=== PATIENT | female | born 1960 | race Caucasian/White ===

== ENCOUNTER 2017-03-04 15:22 | Emergency (ER) | payer OTHER ==
[2017-03-04 18:37] LABS: ADD UMIC YES; UR ASCORBIC ACID NEGATIVE (NEGATIVE); UR BACTERIA FEW /HPF (NONE SEEN); UR BILIRUBIN (Dip) NEGATIVE (NEGATIVE); UR BLOOD (Dip) 2+ mg/dL (NEGATIVE); UR CLARITY TURBID (CLEAR); UR COLOR AMBER (YELLOW); UR GLUCOSE (Dip) 1+ mg/dL (NEGATIVE); UR HYALINE CAST FEW /HPF (NONE SEEN); UR KETONES (Dip) NEGATIVE (NEGATIVE); UR LEUKOCYTE ESTERASE (Dip) NEGATIVE Leu/ul (NEGATIVE); UR MUCUS MODERATE /HPF (NONE SEEN); UR NITRITE (Dip) POSITIVE (NEGATIVE); UR RBC > 182 /HPF (0-5); UR SPECIFIC GRAVITY (Dip) 1.035 (1.003-1.030); UR SQUAMOUS EPITHELIAL CELL FEW /HPF (FEW); UR TOTAL PROTEIN (Dip) 2+ mg/dl (NEGATIVE); UR UROBILINOGEN (Dip) 2+ mg/dL (NEGATIVE); UR WBC 55 /HPF (0-5)
== END 2017-03-04 18:46 | disposition home or self-care (01) ==
LOC: FTE 15:22
DX: N39.0 Urinary tract infection, site not specified (principal); I10 Essential (primary) hypertension
CPT/HCPCS: 81001; 99283

== ENCOUNTER 2018-04-04 21:45 | Emergency (ER) | payer OTHER ==
[2018-04-04 23:13] LABS: URINE BLOOD (Dip) POC Negative (NEGATIVE); URINE GLUCOSE (Dip) POC Negative (NEGATIVE); URINE KETONES (Dip) POC Negative (NEGATIVE); URINE LEUKOCYTE EST (Dip) POC Negative (NEGATIVE); URINE NITRITE (Dip) POC Negative (NEGATIVE); URINE TOTAL PROTEIN POC Negative (NEGATIVE)
== END 2018-04-04 23:50 | disposition home or self-care (01) ==
LOC: FTE 21:45
DX: R30.0 Dysuria (principal); I10 Essential (primary) hypertension
CPT/HCPCS: 81003; 87086; 99283

== ENCOUNTER 2018-04-14 17:43 | Emergency (ER) | payer OTHER ==
[2018-04-14 19:40] LABS: ADD UMIC YES; UR ASCORBIC ACID NEGATIVE (NEGATIVE); UR BACTERIA FEW /HPF (NONE SEEN); UR BILIRUBIN (Dip) NEGATIVE (NEGATIVE); UR BLOOD (Dip) NEGATIVE (NEGATIVE); UR CLARITY TURBID (CLEAR); UR COLOR AMBER (YELLOW); UR GLUCOSE (Dip) NEGATIVE (NEGATIVE); UR KETONES (Dip) NEGATIVE (NEGATIVE); UR LEUKOCYTE ESTERASE (Dip) NEGATIVE Leu/ul (NEGATIVE); UR NITRITE (Dip) POSITIVE (NEGATIVE); UR RBC 5 /HPF (0-5); UR SPECIFIC GRAVITY (Dip) 1.028 (1.003-1.030); UR SQUAMOUS EPITHELIAL CELL MODERATE /HPF (FEW); UR TOTAL PROTEIN (Dip) NEGATIVE (NEGATIVE); UR UROBILINOGEN (Dip) 2+ mg/dL (NEGATIVE); UR WBC 4 /HPF (0-5)
== END 2018-04-14 19:52 | disposition home or self-care (01) ==
LOC: E/R 17:43
DX: N30.10 Interstitial cystitis (chronic) without hematuria (principal); I10 Essential (primary) hypertension
CPT/HCPCS: 81001; 87086; 99283

== ENCOUNTER 2018-04-28 18:30 | Emergency (ER) | payer OTHER ==
[2018-04-28 23:33] LABS: ADD MAN DIFF? NO
[2018-04-28 23:35] LABS: BASOPHIL # 0.1 10^3/ul (0.0-0.1); BASOPHILS % 0.9 % (0.0-2.0); EOSINOPHILS # 0.3 10^3/ul (0.0-0.5); EOSINOPHILS % 2.4 % (0.0-7.0); HEMATOCRIT 36.2 % (37.0-47.0); HEMOGLOBIN 11.7 g/dl (12.0-16.0); LYMPHOCYTES # 3.2 10^3/ul (0.8-2.9); LYMPHOCYTES % 26.2 % (15.0-51.0); MEAN CORPUSCULAR HEMOGLOBIN 34.1 pg (29.0-33.0); MEAN CORPUSCULAR HGB CONC 32.3 g/dl (32.0-37.0); MEAN CORPUSCULAR VOLUME 105.5 fl (82.0-101.0); MEAN PLATELET VOLUME 8.8 fl (7.4-10.4); MONOCYTES % 7.9 % (0.0-11.0); NEUTROPHIL # 7.5 10^3/ul (1.6-7.5); NEUTROPHILS % 61.3 % (39.0-77.0); PLATELET COUNT 344 10^3/UL (140-415); RED BLOOD COUNT 3.43 10^6/ul (4.20-5.40); RED CELL DISTRIBUTION WIDTH 14.2 % (11.5-14.5)
[2018-04-28 23:35] LABS: WHITE BLOOD COUNT 12.3 10^3/ul (4.8-10.8)
[2018-04-28] MEDS: morphine 2 MG INJ IV (23:36)
[2018-04-28] MEDS: CEFTRIAXONE 1 GM/50 ML (PMX) 50 ML IVPB (23:36)
[2018-04-28] MEDS: PHENAZOPYRIDINE 100 MG TAB PO (23:36)
[2018-04-28] MEDS: SOD CHLORIDE 0.9% 1,000 ML IV (23:37)
[2018-04-28 23:46] LABS: ADD UMIC YES; UR ASCORBIC ACID NEGATIVE (NEGATIVE); UR BACTERIA FEW /HPF (NONE SEEN); UR BILIRUBIN (Dip) NEGATIVE (NEGATIVE); UR BLOOD (Dip) 3+ mg/dL (NEGATIVE); UR CLARITY CLOUDY (CLEAR); UR COLOR RED (YELLOW); UR GLUCOSE (Dip) NEGATIVE (NEGATIVE); UR KETONES (Dip) NEGATIVE (NEGATIVE); UR LEUKOCYTE ESTERASE (Dip) TRACE Leu/ul (NEGATIVE); UR NITRITE (Dip) NEGATIVE (NEGATIVE); UR RBC > 182 /HPF (0-5); UR SPECIFIC GRAVITY (Dip) 1.025 (1.003-1.030); UR SQUAMOUS EPITHELIAL CELL FEW /HPF (FEW); UR TOTAL PROTEIN (Dip) 2+ mg/dl (NEGATIVE); UR UROBILINOGEN (Dip) NEGATIVE (NEGATIVE); UR WBC 27 /HPF (0-5)
[2018-04-28 23:54] LABS: ANION GAP 12 (5-13); BLOOD UREA NITROGEN 20 mg/dl (7-20); CALCIUM 9.1 mg/dl (8.4-10.2); CARBON DIOXIDE 17 mmol/L (21-31); CHLORIDE 113 mmol/L (97-110); CREATININE 0.63 mg/dl (0.44-1.00); Estimated GFR > 60 mL/min (>60); GLUCOSE 97 mg/dl (70-220); POTASSIUM 3.5 mmol/L (3.5-5.1); SODIUM 142 mmol/L (135-144)
[2018-04-29] MEDS: IOHEXOL 300MG/ML 150 ML BTL (01:06)
[2018-04-29] MEDS: SOD CHLORIDE 0.9% 100 ML (01:06)
== END 2018-04-29 02:14 | disposition home or self-care (01) ==
LOC: FTE 04-29 02:14
DX: N39.0 Urinary tract infection, site not specified (principal); I10 Essential (primary) hypertension
CPT/HCPCS: 36415; 74177; 80048; 81001; 85025; 87086; 96365; 96366; 96375; 99285-25

== ENCOUNTER 2018-09-24 23:26 | Emergency (ER) | payer OTHER ==
[2018-09-25 01:31] LABS: URINE BLOOD (Dip) POC Trace-lysed (NEGATIVE); URINE GLUCOSE (Dip) POC Negative (NEGATIVE); URINE KETONES (Dip) POC Negative (NEGATIVE); URINE LEUKOCYTE EST (Dip) POC Trace (NEGATIVE); URINE NITRITE (Dip) POC Negative (NEGATIVE); URINE TOTAL PROTEIN POC Negative (NEGATIVE)
[2018-09-25 01:31] LABS: URINE PH (Dip) POC 6.5 (5.0-8.5)
[2018-09-25] MEDS: HYDROCODONE/APAP (5/325) TAB PO (01:42)
[2018-09-25] MEDS: METHYLPREDNISOLONE 125 MG INJ IM (01:42)
[2018-09-25 01:57] LABS: ADD UMIC YES; UR ASCORBIC ACID NEGATIVE (NEGATIVE); UR BACTERIA FEW /HPF (NONE SEEN); UR BILIRUBIN (Dip) NEGATIVE (NEGATIVE); UR BLOOD (Dip) NEGATIVE (NEGATIVE); UR CLARITY CLEAR (CLEAR); UR COLOR YELLOW (YELLOW); UR GLUCOSE (Dip) NEGATIVE (NEGATIVE); UR KETONES (Dip) NEGATIVE (NEGATIVE); UR LEUKOCYTE ESTERASE (Dip) TRACE Leu/ul (NEGATIVE); UR MUCUS FEW /HPF (NONE SEEN); UR NITRITE (Dip) NEGATIVE (NEGATIVE); UR RBC 2 /HPF (0-5); UR SPECIFIC GRAVITY (Dip) 1.009 (1.003-1.030); UR SQUAMOUS EPITHELIAL CELL FEW /HPF (FEW); UR TOTAL PROTEIN (Dip) NEGATIVE (NEGATIVE); UR UROBILINOGEN (Dip) NEGATIVE (NEGATIVE); UR WBC 13 /HPF (0-5)
== END 2018-09-25 02:32 | disposition home or self-care (01) ==
LOC: FTE 23:26
DX: M25.552 Pain in left hip (principal); I10 Essential (primary) hypertension; N30.00 Acute cystitis without hematuria; M25.562 Pain in left knee; S61.257A Open bite of left little finger without damage to nail, initial encounter; W54.0XXA Bitten by dog, initial encounter; Y92.9 Unspecified place or not applicable
CPT/HCPCS: 81001; 81003; 96372; 99284-25

== ENCOUNTER 2018-10-23 05:52 | Inpatient (IN) | payer OTHER ==
[2018-10-23] MEDS: CEFAZOLIN 2 GM/50 ML (PMX) 50 ML IVPB (06:00)
[2018-10-23] MEDS: TRANEXAMIC ACID 1GM/100ML(PMX) 100 ML IVPB (06:00)
[2018-10-23] MEDS: DEXAMETHASONE 1 MG TAB PO (06:30)
[2018-10-23] MEDS: GABAPENTIN 300 MG CAP PO ×2 (06:30→20:38)
[2018-10-23] MEDS ORDERED: MIDAZOLAM 1 MG/ML 2 ML INJ (06:56)
[2018-10-23] MEDS ORDERED: CEFAZOLIN 1 GM INJ (06:56)
[2018-10-23] MEDS ORDERED: FENTAnyl 50 MCG/ML VIAL (06:56)
[2018-10-23] MEDS ORDERED: PROPOFOL 20 ML (06:56)
[2018-10-23] MEDS ORDERED: morphine SULFATE/PF (10 MG/10 ML) INJ (06:56)
[2018-10-23] MEDS ORDERED: EPHEDrine 25 MG/5 ML SYG (06:56)
[2018-10-23] MEDS ORDERED: PHENYLephrine (100 MCG/ML) 5ML SYG (06:56)
[2018-10-23] MEDS ORDERED: TRANEXAMIC ACID 1GM/100ML(PMX) 100 ML ×2 (06:57)
[2018-10-23] MEDS ORDERED: ONDANSETRON 4 MG INJ (06:57)
[2018-10-23] MEDS ORDERED: HYDROCORTISONE 100 MG INJ (06:57)
[2018-10-23] MEDS ORDERED: THROMBIN 5000 UNIT (RECOTHROM) VIAL (07:27)
[2018-10-23] MEDS: POLYMYXIN/BACITRACIN 1L IRRIG (07:27)
[2018-10-23] MEDS ORDERED: CA CHLORIDE (GM) 10% 10 ML INJ (07:27)
[2018-10-23] MEDS ORDERED: BUPIVACAINE 0.5% (SDV) 30 ML, morphine SULFATE (PF) 8 MG, EPINEPHrine 0.3 MG, KETOROLAC... IRR (07:30)
[2018-10-23] MEDS: SOD CHLORIDE 0.9% 100 ML, TRANEXAMIC ACID 3,000 MG IRR (07:30)
[2018-10-23] MEDS ORDERED: ROPIVACAINE 0.5 % 30 ML VIAL (07:32)
[2018-10-23] MEDS ORDERED: ROPIVACAINE 0.2% 20 ML VIAL (08:04)
[2018-10-23] MEDS ORDERED: DIPHENHYDRAMINE 50 MG INJ IV (08:30)
[2018-10-23] MEDS ORDERED: FENTAnyl 50 MCG/ML VIAL IV ×2 (08:30)
[2018-10-23] MEDS ORDERED: MEPERIDINE 25 MG INJ IV (08:30)
[2018-10-23] MEDS ORDERED: HYDROmorphONE 1 MG/5 ML IV SYRINGE IV (08:30)
[2018-10-23] MEDS ORDERED: EPHEDrine 25 MG/5 ML SYG IV (08:30)
[2018-10-23] MEDS ORDERED: ALBUMIN HUMAN 5% 250 ML IV (08:30)
[2018-10-23] MEDS: LACTATED RINGER'S 1,000 ML IV ×4 (08:42→20:40)
[2018-10-23] MEDS: SENNA/DOCUSATE NA (8.6MG/50MG) TAB PO ×2 (09:00→20:38)
[2018-10-23] MEDS: predniSONE 10 MG TAB PO (09:00)
[2018-10-23] MEDS: ATENOLOL 50 MG TAB PO (09:00)
[2018-10-23] MEDS: LOSARTAN 25 MG TAB PO (09:00)
[2018-10-23] MEDS ORDERED: NACL 0.9% 3 ML SYG IV (09:00)
[2018-10-23] MEDS ORDERED: MAGNESIUM HYDROXIDE 30ML CUP PO (09:00)
[2018-10-23] MEDS: CEFAZOLIN 1 GM/50 ML (PMX) 50 ML IVPB ×2 (10:17→17:29)
[2018-10-23] MEDS: ACETAMINOPHEN 1000MG/100ML IV 100 ML IVPB ×2 (10:17→17:29)
[2018-10-23 10:20] LABS: ADD MAN DIFF? NO
[2018-10-23 10:28] LABS: WHITE BLOOD COUNT 8.4 10^3/ul (4.8-10.8)
[2018-10-23 10:28] LABS: BASOPHILS % 0.4 % (0.0-2.0); EOSINOPHILS % 0.1 % (0.0-7.0); HEMATOCRIT 28.6 % (37.0-47.0); HEMOGLOBIN 9.3 g/dl (12.0-16.0); LYMPHOCYTES # 1.5 10^3/ul (0.8-2.9); LYMPHOCYTES % 17.6 % (15.0-51.0); MEAN CORPUSCULAR HEMOGLOBIN 33.2 pg (29.0-33.0); MEAN CORPUSCULAR HGB CONC 32.5 g/dl (32.0-37.0); MEAN CORPUSCULAR VOLUME 102.1 fl (82.0-101.0); MEAN PLATELET VOLUME 8.6 fl (7.4-10.4); MONOCYTE # 0.3 10^3/ul (0.3-0.9); NEUTROPHIL # 6.5 10^3/ul (1.6-7.5); NEUTROPHILS % 77.6 % (39.0-77.0); PLATELET COUNT 298 10^3/UL (140-415); RED CELL DISTRIBUTION WIDTH 13.4 % (11.5-14.5)
[2018-10-23 11:03] LABS: HOLD TRANSMISSIONS 1
[2018-10-23] MEDS: FENTAnyl 50 MCG/ML VIAL IV (11:16)
[2018-10-23] MEDS: ONDANSETRON 4 MG INJ IV ×2 (11:16→17:36)
[2018-10-23] MEDS: oxyCODONE 5 MG TAB PO (22:36)
[2018-10-23] MEDS: DIPHENHYDRAMINE 50 MG INJ IV (22:37)
[2018-10-23] MEDS: ZOLPIDEM 5 MG TAB PO (23:39)
[2018-10-24] MEDS: ACETAMINOPHEN 1000MG/100ML IV 100 ML IVPB (01:03)
[2018-10-24] MEDS: CEFAZOLIN 1 GM/50 ML (PMX) 50 ML IVPB (01:03)
[2018-10-24 05:07] LABS: ADD MAN DIFF? NO
[2018-10-24 05:13] LABS: BASOPHILS % 0.4 % (0.0-2.0); EOSINOPHILS % 0.4 % (0.0-7.0); HEMATOCRIT 27.1 % (37.0-47.0); HEMOGLOBIN 8.6 g/dl (12.0-16.0); LYMPHOCYTES # 2.7 10^3/ul (0.8-2.9); LYMPHOCYTES % 38.6 % (15.0-51.0); MEAN CORPUSCULAR HEMOGLOBIN 32.6 pg (29.0-33.0); MEAN CORPUSCULAR HGB CONC 31.7 g/dl (32.0-37.0); MEAN CORPUSCULAR VOLUME 102.7 fl (82.0-101.0); MONOCYTE # 0.7 10^3/ul (0.3-0.9); MONOCYTES % 9.6 % (0.0-11.0); NEUTROPHIL # 3.5 10^3/ul (1.6-7.5); NEUTROPHILS % 50.6 % (39.0-77.0); PLATELET COUNT 246 10^3/UL (140-415); RED BLOOD COUNT 2.64 10^6/ul (4.20-5.40)
[2018-10-24] MEDS: oxyCODONE 5 MG TAB PO ×3 (06:30→15:53)
[2018-10-24] MEDS: HYDROmorphONE 1 MG/ML SYG IV ×2 (07:51→14:20)
[2018-10-24] MEDS: ATENOLOL 50 MG TAB PO (08:52)
[2018-10-24] MEDS: predniSONE 10 MG TAB PO (08:52)
[2018-10-24] MEDS: ASPIRIN (EC) 325 MG TAB PO (08:52)
[2018-10-24] MEDS: SENNA/DOCUSATE NA (8.6MG/50MG) TAB PO (08:52)
[2018-10-24] MEDS: LOSARTAN 25 MG TAB PO (08:53)
[2018-10-24] MEDS: LACTATED RINGER'S 1,000 ML IV (14:42)
[2018-10-25] MEDS ORDERED: MAGNESIUM HYDROXIDE 30ML CUP PO (21:00)
== END 2018-10-24 17:30 | disposition home or self-care (01) | DRG 470 ==
LOC: REC 05:52 → MS1 11:07
PROVIDERS: Orthopaedic Surgery
PROC: 0SRB04A Replacement of Left Hip Joint with Ceramic on Polyethylene Synthetic Substitute, Uncemented, Open Approach (ICD-10-PCS; principal; 2018-10-23 06:59)
DX: M16.12 Unilateral primary osteoarthritis, left hip (principal); I10 Essential (primary) hypertension; E78.5 Hyperlipidemia, unspecified; M06.9 Rheumatoid arthritis, unspecified
CPT/HCPCS: 72170; 73530; 85025; 86999; 87086; 88304; 88311; 97116; 97161; 97530